=== PATIENT | male | born 1950 | race Caucasian/White ===

== ENCOUNTER 2016-11-01 18:29 | Emergency (ER) | payer MEDICARE, OTHER ==
[2016-11-01 17:39] LABS: BASOPHILS 0.2 %; BASOPHILS ABSOLUTE 0.03 10/3/uL (0.0-0.16); EOSINOPHILS 29.8 %; EOSINOPHILS ABSOLUTE 3.71 10/3/uL (0.0-0.53); ER CBC TAT 0 Hrs 09 Mins; HEMATOCRIT 44.6 % (40.0-51.0); HEMOGLOBIN 14.9 g/dL (13.6-17.8); IMMATURE GRANULOCYTES 0.2 %; LYMPHOCYTES 17.5 %; LYMPHOCYTES ABSOLUTE 2.18 10/3/uL (0.67-4.30); MEAN CORPUS HGB CONC 33.4 g/dL (32.0-36.0); MEAN CORPUSCULAR HEMOGLOB 31.8 pg (26.0-34.0); MEAN CORPUSCULAR VOLUME 95.3 fL (80-100); MEAN PLATELET VOLUME 12.2 fL (9.2-13.0); MONOCYTES 4.7 %; MONOCYTES ABSOLUTE 0.58 10/3/uL (0.21-1.20); NEUTROPHILS 47.6 %; NEUTROPHILS ABSOLUTE 5.91 10/3/uL (2.02-8.40); PLATELET COUNT 150 10/3/uL (150-400); RBC DISTRIBUTION WIDTH 14.1 % (12.0-16.0); RED CELL COUNT 4.68 10/6/uL (4.7-6.1); WHITE BLOOD CELLS 12.4 10/3/uL (4.5-10.5)
[2016-11-01 17:40] LABS: IMMATURE GRANULOCYTES ABSOLUTE 0.03 10/3/uL (0.0-0.11); MANUAL DIFF NO %
[2016-11-01 17:46] LABS: INTERNATIONAL NORMAL RATI 1.2 UNITS (-); PROTIME (NOT ORD) 14.7 SEC (12.0-14.5)
[2016-11-01 17:47] LABS: PARTIAL THROMBO TIME 28.6 SEC (22.5-37.2)
[2016-11-01 17:49] LABS: ALBUMIN 3.5 G/DL (3.5-5.0); ALKALINE PHOSPHATASE 78 U/L (45-117); CALCIUM, SERUM 9.1 MG/DL (8.5-10.4); CHLORIDE, SERUM 102 MMOL/L (96-112); CO2 (CARBON DIOXIDE) 27 MMOL/L (24-34); CREATININE 1.18 MG/DL (0.70-1.30); GFR AFRICAN AMERICAN 74 ML/MIN (>=60); GFR NON AFRICAN AMERICAN 63 ML/MIN (>=60); SGOT(AST) 18 U/L (5-40); SGPT(ALT) 17 U/L (5-65); SODIUM, SERUM 139 MMOL/L (135-148); TOTAL PROTEIN 7.5 G/DL (6.0-8.5)
[2016-11-01 17:50] LABS: A/G RATIO 0.9 (0.7-1.9); BUN (BLOOD UREA NITROGEN) 17 MG/DL (6-23); GLUCOSE, SERUM 111 MG/DL (60-99); POTASSIUM, SERUM 3.3 MMOL/L (3.5-5.3); TOTAL BILIRUBIN 0.5 MG/DL (0-1.2)
[2016-11-01 18:16] LABS: BAND NEUTROPHILS 2 %; EOSINOPHILS 25 %; ER DIFF TAT 0 Hrs 46 Mins; LYMPHOCYTES 22 %; LYMPHOCYTES ABSOLUTE (CALC) 2.73 10/3/uL (0.67-4.30); MONOCYTES 4 %; NEUTROPHILS ABSOLUTE (CALC) 6.08 10/3/uL (2.02-8.40); PATH REVIEW YES; SEGMENTED NEUTROPHIL (0) 47 %; TOTAL NUCLEATED CELLS 100
[2016-11-01 18:18] LABS: PLATELET ESTIMATE ADQ (ADEQUATE)
[~2016-11-01 18:29] MED LIST: ADVAIR250 INH; AMIT25 PO; ATIVAN2 MG PO; ATV.5 PO; ATV1 PO; B150 PO; BETAPACE80 PO; COLCH6 PO; COREG12 PO; CORTEF5 PO; EYE DROPS OP; FOLIC PO; HALF81 PO; INDO50 PO; INHALER; LIPITOR40 PO; LIPITOR80 MG PO; LOP25 PO; LOP50 PO; LORT7 PO; LORTAB10 PO; MEXITIL 150 MG150 MG PO; OXYCOD PO; P10 PO; P5 PO; PLAVIX PO; PRILO PO; PROAIR HFA INH; PROTONIX PO; PROVHFA INH; SYMBICORT 160/41 INH INH; VASOTEC2 PO; VASOTEC5 PO; ZOCOR10 PO; ZOCOR20 PO; ZOCOR40 PO; ZOL50 PO
[2016-11-01 19:01] LABS: ASCORBIC ACID (UR NOT ORDER) NEG (NEG); BILIRUBIN, URINE NEGATIVE (NEG); ER URINALYSIS TAT 0 Hrs 20 Mins; KETONE, URINE NEGATIVE (NEG); LEUKOCYTE ESTERASE(NOT OR NEG (NEG); NITRITE (URINE) NEG (NEG); WBC (NOT ORDERED) (RFLEX) 1 (0-5)
[2016-11-02 09:57] LABS: PATH REVIEW SEE PATHOLOGY REPORT
[2016-12-19] MEDS ORDERED: MONODOX100 MG PO (12:56)
== END 2016-11-01 20:15 | disposition home or self-care (01) ==
LOC: ER 18:29
PROVIDERS: Emergency Medicine
DX: M79.1 Myalgia (principal); J44.9 Chronic obstructive pulmonary disease, unspecified; I25.2 Old myocardial infarction; K21.9 Gastro-esophageal reflux disease without esophagitis; F17.200 Nicotine dependence, unspecified, uncomplicated; Z95.1 Presence of aortocoronary bypass graft; Z95.0 Presence of cardiac pacemaker; Z88.8 Allergy status to other drugs, medicaments and biological substances; Z79.82 Long term (current) use of aspirin; Z79.899 Other long term (current) drug therapy
CPT/HCPCS: 74176; 80053; 81001; 85025; 85610; 85730; 99285; A9270-GY

== ENCOUNTER 2016-12-23 06:19 | Inpatient (IN) | payer MEDICARE, OTHER ==
[2016-12-19 10:37] LABS: HEMATOCRIT 44.3 % (40.0-51.0); HEMOGLOBIN 14.5 g/dL (13.6-17.8); MEAN CORPUS HGB CONC 32.7 g/dL (32.0-36.0); MEAN CORPUSCULAR HEMOGLOB 31.3 pg (26.0-34.0); MEAN CORPUSCULAR VOLUME 95.5 fL (80-100); MEAN PLATELET VOLUME 11.6 fL (9.2-13.0); PLATELET COUNT 135 10/3/uL (150-400); RBC DISTRIBUTION WIDTH 14.8 % (12.0-16.0); RED CELL COUNT 4.64 10/6/uL (4.7-6.1); WHITE BLOOD CELLS 11.5 10/3/uL (4.5-10.5)
[2016-12-19 10:38] LABS: MANUAL DIFF YES %
[2016-12-19 10:45] LABS: INTERNATIONAL NORMAL RATI 1.1 UNITS (-); PROTIME (NOT ORD) 14.2 SEC (12.0-14.5)
[2016-12-19 10:49] LABS: BUN (BLOOD UREA NITROGEN) 14 MG/DL (6-23); CALCIUM, SERUM 8.8 MG/DL (8.5-10.4); CHLORIDE, SERUM 108 MMOL/L (96-112); CO2 (CARBON DIOXIDE) 31 MMOL/L (24-34); CREATININE 1.14 MG/DL (0.70-1.30); GFR AFRICAN AMERICAN 77 ML/MIN (>=60); GFR NON AFRICAN AMERICAN 66 ML/MIN (>=60); SODIUM, SERUM 143 MMOL/L (135-148)
[2016-12-19 10:50] LABS: GLUCOSE, SERUM 77 MG/DL (60-99); POTASSIUM, SERUM 4.3 MMOL/L (3.5-5.3)
[2016-12-19 11:02] LABS: BAND NEUTROPHILS 3 %; EOSINOPHILS 18 %; EOSINOPHILS ABSOLUTE (CALC) 2.07 10/3/uL (0.0-0.53); LYMPHOCYTES 34 %; LYMPHOCYTES ABSOLUTE (CALC) 3.91 10/3/uL (0.67-4.30); MONOCYTES 5 %; MONOCYTES ABSOLUTE (CALC) 0.58 10/3/uL (0.21-1.20); NEUTROPHILS ABSOLUTE (CALC) 4.95 10/3/uL (2.02-8.40); PLATELET ESTIMATE SLT DEC (ADEQUATE); SEGMENTED NEUTROPHIL (0) 40 %; TOTAL NUCLEATED CELLS 100
[2016-12-19 11:03] LABS: RBC MORPHOLOGY NORM (NORMAL)
--- NOTE | ~2016-12-23 | OP ---
Record Of Operation [facility] [address] [place]. [address] NAME: LIZETT GONGORA : 48 STATUS : ADM IN PAT#: [id number] AGE: 66 ADM/REG DATE : 12/23/16 MR#: [id number] REPORT SERV DATE: 12/23/16 DICTATED BY: EDWARDO BELTRAN DATE: 12/23/16 REPORT STATUS : Draft TRANSCRIBED BY: MODL DATE: 12/23/16 DATE OF PROCEDURE: 12/23/2016 PREPROCEDURE DIAGNOSIS: Critical left internal carotid artery stenosis. POSTOPERATIVE DIAGNOSIS: Greater than 80% left internal carotid artery stenosis. PROCEDURE PERFORMED: 1. Arch aortogram. 2. Left common carotid artery catheterization with arteriography. 3. Placement of 6 mm distal embolic protection filter. 4. Primary left internal carotid artery 8 x 40 stent with secondary angioplasty 4 x 2 balloon. SURGEON: Edwardo Beltran M.D. ANESTHESIA: Local and MAC. COMPLICATIONS: None. INDICATION FOR PROCEDURE: Secondary to this very pleasant 66-year-old gentleman presenting with severe bilateral carotid artery disease status post right ICA stent approximately two months ago associated with his cardiac dysfunction and AICD pacer. The patient has developed a left internal carotid artery obstruction and recommendations were made for a left carotid stent. Risks and benefits discussed. Consent was obtained. DETAILS OF PROCEDURE: The patient was brought to the endovascular operating room, placed in supine position, prepped and draped in routine sterile fashion with attention to the bilateral groin region. The right femoral artery was then cannulated with a micropuncture needle followed by a wire and a sheath. Catheter was then advanced into the arch of the aorta and 30-degree SHANTHI arch arteriogram was then performed showing evidence of widely patent left common carotid artery and right innominate artery in a bovine configuration. 5000 units of heparin was given and allowed to circulate. The left internal carotid artery was then cannulated with a glide catheter and an Amplatz wire was then placed. This then passed into the distal common carotid artery and a sheath was then advanced. Next, arteriogram confirmed evidence of a very critical stenosis of the left internal carotid artery with ulcerations and calcifications severe, estimated 80% more obstruction of the internal carotid artery. Next, a 6 mm distal embolic protection filter AngioGuard was then passed through the stenosis to the distal ICA without difficulty, it was deployed. Next, an 8 x 40 stent was then passed over the AngioGuard wire to the internal carotid artery and deployed. Secondary angioplasty was performed with a 4 x 2 balloon secondary to a high- grade continued obstruction of the stenotic region. This dramatically opened the segment. Completion imaging showed sluggish flow suggesting possible filter that might be full. The filter was then removed and it was found to have minimal calcific debris. Imaging continued to show some sluggish flow and this was related to spasm where the filter was noted. At this point, 200 mcg of nitroglycerin was then given intra-arterially and this broke the Record Of Operation [place] [id number] [facility] [place]. [address] NAME: LIZETT GONGORA : 48 STATUS : ADM IN [facility]#: [id number] AGE: 66 ADM/REG DATE : 12/23/16 MR#: [id number] REPORT SERV DATE: 12/23/16 DICTATED BY: EDWARDO BELTRAN DATE: 12/23/16 REPORT STATUS : Draft TRANSCRIBED BY: CELIO DATE: 12/23/16 spasm. Completion imaging showed wide patency of the stent and the artery distally. The patient was neurologically intact throughout the entire procedure. At this point, the sheaths were then removed. The right groin was closed with Angio-Seal. The patient tolerated the procedure well. YANIV/CELIO Edwardo Beltran M.D. / [id number] CC: Edwardo Beltran M.D.
[~2016-12-23 06:19] MED LIST changes: +MONODOX100 MG PO
[2016-12-24 03:47] LABS: BASOPHILS 0.2 %; BASOPHILS ABSOLUTE 0.02 10/3/uL (0.0-0.16); EOSINOPHILS 19.1 %; EOSINOPHILS ABSOLUTE 1.91 10/3/uL (0.0-0.53); HEMOGLOBIN 13.2 g/dL (13.6-17.8); IMMATURE GRANULOCYTES 0.2 %; IMMATURE GRANULOCYTES ABSOLUTE 0.02 10/3/uL (0.0-0.11); LYMPHOCYTES 28.1 %; LYMPHOCYTES ABSOLUTE 2.81 10/3/uL (0.67-4.30); MEAN CORPUS HGB CONC 33.5 g/dL (32.0-36.0); MEAN CORPUSCULAR HEMOGLOB 31.4 pg (26.0-34.0); MEAN CORPUSCULAR VOLUME 93.6 fL (80-100); MEAN PLATELET VOLUME 11.8 fL (9.2-13.0); MONOCYTES 6.7 %; MONOCYTES ABSOLUTE 0.67 10/3/uL (0.21-1.20); NEUTROPHILS 45.7 %; NEUTROPHILS ABSOLUTE 4.58 10/3/uL (2.02-8.40); PLATELET COUNT 112 10/3/uL (150-400); RBC DISTRIBUTION WIDTH 14.6 % (12.0-16.0); RED CELL COUNT 4.21 10/6/uL (4.7-6.1)
[2016-12-24 03:48] LABS: HEMATOCRIT 39.4 % (40.0-51.0); MANUAL DIFF NO %
[2016-12-24 04:12] LABS: BUN (BLOOD UREA NITROGEN) 14 MG/DL (6-23); CALCIUM, SERUM 8.7 MG/DL (8.5-10.4); CHLORIDE, SERUM 109 MMOL/L (96-112); CREATININE 0.95 MG/DL (0.70-1.30); GFR AFRICAN AMERICAN 96 ML/MIN (>=60); GFR NON AFRICAN AMERICAN 83 ML/MIN (>=60); GLUCOSE, SERUM 87 MG/DL (60-99); POTASSIUM, SERUM 4.1 MMOL/L (3.5-5.3); SODIUM, SERUM 142 MMOL/L (135-148)
[2016-12-24 04:15] LABS: CO2 (CARBON DIOXIDE) 26 MMOL/L (24-34)
== END 2016-12-24 13:48 | disposition home or self-care (01) | DRG 35 ==
LOC: SDC/OF 06:19 → PACU 09:28 → CVICU 11:47
PROVIDERS: Specialist
PROC: 037J3DZ Dilation of Left Common Carotid Artery with Intraluminal Device, Percutaneous Approach (ICD-10-PCS; principal; 2016-12-23 07:45)
DX: I65.22 Occlusion and stenosis of left carotid artery (principal); E27.1 Primary adrenocortical insufficiency; J44.9 Chronic obstructive pulmonary disease, unspecified; Z79.899 Other long term (current) drug therapy; Z79.82 Long term (current) use of aspirin; Z79.02 Long term (current) use of antithrombotics/antiplatelets; Z88.8 Allergy status to other drugs, medicaments and biological substances; I10 Essential (primary) hypertension; I25.2 Old myocardial infarction; Z95.810 Presence of automatic (implantable) cardiac defibrillator; F17.210 Nicotine dependence, cigarettes, uncomplicated
CPT/HCPCS: 36221; 37215; 80048; 83735; 85025; 85610; 93005; A9270-GY; C1725; C1760; C1769; C1876; C1884; C1887; C1894; J0690; J1720; J2270; J2370; J3010; Q9966

== ENCOUNTER 2017-02-07 12:28 | Observation (INO) | payer MEDICARE, OTHER ==
--- NOTE | ~2017-02-07 | HP ---
History And Physical [place] [address] [facility] [place]. [address] NAME: LIZETT UP : 48 STATUS : DIS Charito PAT#: [id number] AGE: 66 ADM/REG DATE : 02/07/17 MR#: [id number] REPORT SERV DATE: 02/10/17 DICTATED BY: GEOVANNA SOTO DATE: 02/08/17 REPORT STATUS : Draft TRANSCRIBED BY: MODL DATE: 02/08/17 DATE OF ADMISSION: 02/07/2017 REASON FOR ADMISSION: Transient ischemic attack. HISTORY OF PRESENT ILLNESS: Mr. Up is a 66-year-old male with coronary artery disease, systolic congestive heart failure, coronary arteriography, history of percutaneous intervention to his left carotid artery six days ago. He returns today with the chief complaint that his AICD had fired, a similar feeling to a couple of years ago when it fired; however, he had an interrogation by [employer] where he was found to have no firing and no dysrhythmia, whatsoever. The patient says that he had an episode a month ago with pain in his head with also a negative evaluation but a subsequent headache after that. Last night however on the night of 02/06/2017, the patient had been sleeping when he felt like his left side of his face was abruptly slapped. He had AICD firing. He noticed tingling and numbness to the left side of his body that lasted about an hour after that. This was all better although he did have some mild residual left lower extremity numbness and he sought medical attention on the morning of 02/07/2017. The patient had no speech or swallowing changes. No acute visual changes. No change in his previous weakness which he noticed some left lower and left upper extremity weakness at baseline. He also complains that he has jerky movements when he tries to fall sleep and sleeps approximately 16 hours a day. The daughter says he has been more dizzy and off balance but today he is somewhat more disoriented and forgetful with some questionable staring spells. The patient claims he is just very sleepy and falls asleep often. The patient also complains of an itchy rash which comes and goes; gout with occasional swelling of his legs but no chest pain or palpitations. Breathing has been okay. There has been no peripheral edema. No nausea or vomiting. He has some benign prostatic hypertrophy symptoms but no other gastrointestinal or urinary complaints. No weight change. No fever or chills. REVIEW OF SYSTEMS: Remainder of review of systems are negative. PAST MEDICAL HISTORY: As mentioned above, history of CABG, history of Martindale's, and history of psoriasis. MEDICATIONS: Include 1. Aspirin. 2. Plavix. 3. Vasotec. 4. Colchicine. 5. Protonix. 6. Ativan. 7. Lipitor. 8. Oxycodone. 9. Betapace. 10.Hydrocortisone. 11.Elavil. History And Physical [address] [address] NAME: LIZETT UP : 48 STATUS : DIS Charito PAT#: [id number] AGE: 66 ADM/REG DATE : 02/07/17 MR#: [id number] REPORT SERV DATE: 02/10/17 DICTATED BY: GEOVANNA SOTO DATE: 02/08/17 REPORT STATUS : Draft TRANSCRIBED BY: CELIO DATE: 02/08/17 12.Mexiletine. ALLERGIES: TO CYMBALTA AND PHENOBARBITAL. FAMILY HISTORY: Positive for stroke. SOCIAL HISTORY: The patient is a smoker. PHYSICAL EXAMINATION: VITAL SIGNS: On presentation, blood pressure 119/71, pulse 82, respirations 20, afebrile, and saturating 95% on room air. GENERAL: Awake, alert, and oriented x3, in no apparent distress with a very long white hair and a long white osman that goes approximately to his mid abdomen. HEENT: Pupils equal, round, and reactive to light. Extraocular movements were intact. He had moist mucous membranes. Normal oropharynx. Mild esotropia was noted bilaterally. He had no visual field cuts. NECK: Revealed no jugular venous distention, carotid bruits, lymphadenopathy, or goiter. CARDIAC: Regular rate and rhythm. No murmurs, gallops, or rubs. Normal apical upstroke. AICD was present in the left upper thorax. LUNGS: Clear to auscultation bilaterally with good excursion. ABDOMEN: Nondistended, nontender. Bowel sounds are normoactive. EXTREMITIES: No cyanosis, clubbing, or edema. Good pulses and capillary refill. NEUROLOGIC: He had a normal sensory function x4. Normal motor function x4. Normal finger- to-nose test. SKIN: Warm and dry. PSYCHIATRIC: He is appropriate. It should be noted he did notice some mild diminishment of sensation in his left foot relative to the right. LABORATORY EVALUATION: Sodium 142, potassium 4.3, chloride 108, bicarb 27, BUN 60, creatinine 1.8, and glucose 94. White count [address]7557, H and H 25 and 45, platelets 144 with 26% eosinophils. CT of the brain showed white matter changes and some suggestion of some lacunar infarct in the right cerebral hemisphere. EKG was paced. Chest x-ray reviewed by me was no apparent disease. Pacemaker was noted. ASSESSMENT AND PLAN: 1. TIA in a high risk patient with known dilated cardiomyopathy. The patient is not a candidate for MRI due to the presence of the device, however, even in the absence of atrial fibrillation, the burden of evidence would suggest use of anticoagulation in this setting with evidence of previous thromboembolic events. We will initiate anticoagulation, check on telemetry for 24 hours with sequential neurological assessments. He has very recently had echocardiography and carotid ultrasonography and therefore this does not need to be repeated. In addition his carotid intervention was contralateral to the area of concern in his opposite cerebral hemisphere. Therefore postoperative complications are not considered. There was no evidence of AICD firing to trigger these symptoms. The jerking sensation he noted appears to be hypneic jerks with his high degree of somnolence. The patient likely has undiagnosed sleep apnea. 2. Congestive heart failure. The patient is on good medical therapy. Appears to be well History And Physical [address] [address] NAME: LIZETT UP : 48 STATUS : DIS Charito PAT#: [id number] AGE: 66 ADM/REG DATE : 02/07/17 MR#: [id number] REPORT SERV DATE: 02/10/17 DICTATED BY: GEOVANNA SOTO DATE: 02/08/17 REPORT STATUS : Draft TRANSCRIBED BY: CELIO DATE: 02/08/17 compensated. JOHN/CELIO Geovanna Soto M.D. / [id number] CC: Jack Monaco M.D. Christopher Lesar, M.D. Gregory Keith Bruce, M.D.
--- NOTE | ~2017-02-07 | DS ---
Discharge Summary [facility] [address] [place]. 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 Eosinophilia. Chronic pain syndrome. History of Ino's disease. SECONDARY DIAGNOSES: Chronic systolic congestive heart failure, peripheral arterial disease, hypertension, history of AICD. HISTORY OF PRESENT ILLNESS: Please see my dictation from 02/07/2017. HOSPITAL COURSE: Admitted with what he felt were AICD shocks, however, upon review from [employer] found to have no shocks at all, however, he did have an hour period of left-sided numbness consistent with a TIA. CT revealed old ischemic changes including some areas of reduced attenuation consistent with lacunar infarcts of a subacute or chronic duration. The patient's symptoms had resolved. He was kept for observation. He had no atrial fibrillation, and I reviewed the [employer] reports and found no history of atrial fibrillation. However given the fact that he had dilated cardiomyopathy and now evidence of a thromboembolic event, it was felt that the burden of evidence would suggest transitioning of his anticoagulation to Plavix plus Eliquis to replace the aspirin but that he should address this further with Dr. Tony Barron, with whom he will follow up in one to two weeks. The patient actually felt well, wished to go home by 02/08/2017. It had been about close to 48 hours since the event so it was felt satisfactory to release him. He went home in satisfactory condition. Stopping the aspirin, beginning the Eliquis, other medications were unchanged. He will follow up with Dr. Oren Dimas in one to two weeks and Dr. Tony Barron as mentioned. The patient was found to have a high eosinophil count of 26%. It was not clear what the nature of that was. We discussed other medications and that may be causative including the Elavil which he felt was not helping his perception of pain. He was taken off the Elavil and also instructed to increase his daily hydrocortisone to 10 mg b.i.d. He would begin the hydrocortisone 10 b.i.d. in addition to the Eliquis, Coumadin, and other home medications but subtracting the aspirin and Elavil. DICTATED BY: Jack Monaco/CELIO Geovanna Soto M.D. Discharge Summary [address] [address] NAME: LIZETT GONGORA : 48 STATUS : DIS Charito PAT#: [id number] AGE: 66 ADM/REG DATE : 02/07/17 MR#: [id number] REPORT SERV DATE: 02/08/17 DICTATED BY: GEOVANNA SOTO DATE: 02/08/17 REPORT STATUS : Draft TRANSCRIBED BY: CELIO DATE: 02/08/17 / [id number] CC: Jack Monaco M.D. Gregory Keith Bruce, M.D.
[2017-02-07 12:27] LABS: BASOPHILS 0.4 %; BASOPHILS ABSOLUTE 0.06 10/3/uL (0.0-0.16); EOSINOPHILS ABSOLUTE 3.62 10/3/uL (0.0-0.53); ER CBC TAT 0 Hrs 03 Mins; IMMATURE GRANULOCYTES 0.2 %; LYMPHOCYTES ABSOLUTE 2.68 10/3/uL (0.67-4.30); MEAN CORPUS HGB CONC 33.5 g/dL (32.0-36.0); MEAN CORPUSCULAR HEMOGLOB 31.8 pg (26.0-34.0); MEAN CORPUSCULAR VOLUME 94.9 fL (80-100); MEAN PLATELET VOLUME 11.6 fL (9.2-13.0); MONOCYTES 6.7 %; NEUTROPHILS 45.7 %; NEUTROPHILS ABSOLUTE 6.11 10/3/uL (2.02-8.40); PLATELET COUNT 144 10/3/uL (150-400); RBC DISTRIBUTION WIDTH 14.3 % (12.0-16.0); RED CELL COUNT 4.72 10/6/uL (4.7-6.1); WHITE BLOOD CELLS 13.4 10/3/uL (4.5-10.5)
[2017-02-07 12:29] LABS: HEMATOCRIT 44.8 % (40.0-51.0); IMMATURE GRANULOCYTES ABSOLUTE 0.03 10/3/uL (0.0-0.11); MANUAL DIFF NO %
[2017-02-07 12:34] LABS: INTERNATIONAL NORMAL RATI 1.1 UNITS (-); PARTIAL THROMBO TIME 28.6 SEC (22.5-37.2); PROTIME (NOT ORD) 14.4 SEC (12.0-14.5)
[2017-02-07 12:43] LABS: ALBUMIN 3.7 G/DL (3.5-5.0); ALKALINE PHOSPHATASE 73 U/L (45-117); BUN (BLOOD UREA NITROGEN) 16 MG/DL (6-23); CHEST PAIN PROFILE TAT 0 Hrs 19 Mins; CHLORIDE, SERUM 108 MMOL/L (96-112); CO2 (CARBON DIOXIDE) 27 MMOL/L (24-34); CREATININE 1.23 MG/DL (0.70-1.30); GFR AFRICAN AMERICAN 70 ML/MIN (>=60); GFR NON AFRICAN AMERICAN 60 ML/MIN (>=60); GLUCOSE, SERUM 94 MG/DL (60-99); POTASSIUM, SERUM 4.3 MMOL/L (3.5-5.3); SGPT(ALT) 21 U/L (5-65); SODIUM, SERUM 142 MMOL/L (135-148); TOTAL BILIRUBIN 0.3 MG/DL (0-1.2); TOTAL PROTEIN 7.4 G/DL (6.0-8.5); TROPONIN I <0.02 NG/ML (<0.05)
[2017-02-07 12:46] LABS: DIRECT BILIRUBIN 0.1 MG/DL (0.0-0.4); INDIRECT BILIRUBIN(NOT ORDER) 0.2 MG/DL (0.1-0.9); SGOT(AST) 20 U/L (5-40)
[2017-02-07 12:48] LABS: BAND NEUTROPHILS 1 %; EOSINOPHILS 26 %; EOSINOPHILS ABSOLUTE (CALC) 3.48 10/3/uL (0.0-0.53); ER DIFF TAT 0 Hrs 24 Mins; LYMPHOCYTES 22 %; LYMPHOCYTES ABSOLUTE (CALC) 2.95 10/3/uL (0.67-4.30); MONOCYTES 3 %; NEUTROPHILS ABSOLUTE (CALC) 6.57 10/3/uL (2.02-8.40); PLATELET ESTIMATE SLT DEC (ADEQUATE); SEGMENTED NEUTROPHIL (0) 48 %; TOTAL NUCLEATED CELLS 100
[2017-02-07 12:49] LABS: RBC MORPHOLOGY NORM (NORMAL)
[2017-02-07] MEDS ORDERED: BACTROINT TOP (14:16)
[2017-02-07] MEDS ORDERED: PROBENECID/COLCHICIN PO (14:16)
[2017-02-07] MEDS ORDERED: SANTYL TOP (14:18)
[2017-02-07] MEDS ORDERED: NITROSTAT0.4 MG SL (14:20)
[2017-02-08] MEDS ORDERED: CORTEF5 PO (12:29)
[2017-02-08] MEDS ORDERED: ELIQUIS 5 MG TAB5 MG PO (12:34)
== END 2017-02-08 13:05 | disposition home or self-care (01) ==
LOC: ER 12:28 → CDU1 14:43
PROVIDERS: Emergency Medicine
DX: G45.9 Transient cerebral ischemic attack, unspecified (principal); I11.0 Hypertensive heart disease with heart failure; I50.22 Chronic systolic (congestive) heart failure; I73.9 Peripheral vascular disease, unspecified; F17.210 Nicotine dependence, cigarettes, uncomplicated; I42.0 Dilated cardiomyopathy; Z95.1 Presence of aortocoronary bypass graft; Z79.82 Long term (current) use of aspirin; Z79.899 Other long term (current) drug therapy; Z88.8 Allergy status to other drugs, medicaments and biological substances; Z82.3 Family history of stroke; Z90.49 Acquired absence of other specified parts of digestive tract; Z79.891 Long term (current) use of opiate analgesic; Z90.89 Acquired absence of other organs; Z98.890 Other specified postprocedural states
CPT/HCPCS: 70450; 71010; 80048; 80076; 83735; 84484; 85025; 85610; 85730; 93005; 93288; 99285; A9270-GY; G0378